=== PATIENT | female | born 1990 | race Caucasian/White ===

== ENCOUNTER → 2016-08-26 | Outpatient (CLI) | payer BC ==
[~2016-08-26] MED LIST: AMOX500C3 PO; LEVO150T9 PO; LEVO200T6 PO; RANI150T3 PO; TRAZ50TA35 PO; VENL1CAP92 PO
--- NOTE | 2016-08-26 15:39 | DIAGNOSTIC IMAGING REPORT ---
TWO VIEW CHEST CLINICAL HISTORY: Dyspnea. FINDINGS: PA and lateral chest radiographs are compared to study dated 07/15/2015. The examination is degraded by large body habitus. The cardiomediastinal silhouette is unremarkable. The lungs and pleural spaces are clear. There is no pneumothorax. The bony thorax appears intact. IMPRESSION: No active disease in the chest. Electronically signed by: Sebastian Bailey M.D. 08/26/2016 3:37 PM Dictated Date/Time: 08/26/2016 3:37 PM
== END | disposition home or self-care (01) ==
LOC: C.RAD 15:13
PROVIDERS: ATTEND Family Medicine
DX: J45.909 Unspecified asthma, uncomplicated (principal)

== ENCOUNTER 2016-11-22 17:02 | Emergency (ER) | payer BC ==
[~2016-11-22] VITALS: Ht 167.6 cm; Wt 151.7 kg
[~2016-11-22 17:02] MED LIST changes: -LEVO200T6 PO; -RANI150T3 PO; -TRAZ50TA35 PO
[2016-11-22 17:08] VITALS: TEMP 36.8; Ht 167.6 cm; Wt 151.7 kg
[2016-11-22] MEDS ORDERED: RANI150T3 PO (17:35)
[2016-11-22] MEDS ORDERED: LEVO200T6 PO (17:35)
[2016-11-22] MEDS ORDERED: TRAZ50TA35 PO (17:35)
[2016-11-22 17:53] VITALS: BP 134/83; PULSE 89; O2SAT 98
--- NOTE | 2016-11-22 19:37 | EMERGENCY ROOM VISIT NOTE ---
History First contact with patient: 17:09 Chief Complaint: RABIES VACCINE Stated Complaint: BITE History of Present Illness The patient is a 26 year old female who presents to the Emergency Room with complaints of chipmunk bite to her right thumb. The patient states this occurred about 24 hours ago. She saw her outdoor cat carrying something in its mouth, and she removed it from the cats mouth. She saw that it was a small animal, but did not realize it was still alive, and the animal bit her. The patient did kill the animal and went to her primary care physician's office today. The PCP was concerned about rabies and the patient was referred to the ER for evaluation. The patient is reportedly up-to-date on her tetanus. She does not have other injuries or persistent bleeding. Review of Systems More than 10 systems were reviewed and otherwise negative with the exception of history of present illness. Past Medical/Surgical History Medical Problems: (1) Hypothyroid (2) Panic attacks Family History No pertinent family history Social History Smoking Status: Former Smoker Housing Status: lives with family Current/Historical Medications Scheduled Levothyroxine Sodium (Levothyroxine Sodium), 200 MCG PO DAILY Ranitidine Hcl (Zantac), 150 MG PO DAILY Trazodone Hcl (Trazodone), 50 MG PO HS Allergies Coded Allergies: Chocolate (Verified Allergy, Intermediate, nausea, 11/22/16) Bismuth Subsalicylate (Verified Adverse Reaction, Intermediate, nausea, ) From Pepto Bismol Physical Exam Vital Signs Date Time Temp Pulse Resp B/P Pulse Ox O2 Delivery O2 Flow Rate FiO2 11/22/16 17:53 89 20 134/83 98 Room Air 11/22/16 17:08 36.8 96 20 141/93 98 Room Air Pain Rating (0-10): 0 Physical Exam VITALS: Vitals are noted on the nurse's note and reviewed by myself. Vital signs stable. GENERAL: Well-developed, well-nourished, white female, who is in no acute distress and resting comfortably. Patient is cooperative with the examination. HEAD: Normocephalic atraumatic. HEART: Regular rate and rhythm without murmurs gallops or rubs. LUNGS: Clear to auscultation bilaterally without wheezes, rales or rhonchi. No retractions or accessory muscle use. SKIN: The skin was with a small healing wound to the palmar distal right thumb consistent with animal bite. There is no active bleeding. The patient with full sensation and range of motion. Medical Decision & Procedures ED Course Physical exam and history were performed. Nursing notes and EMR were reviewed. Patient appears to have suffered an animal bite to her right thumb. She was able to kill and preserve the animal. I examined the wound appears clean and well healing. I discussed the case with the [facility] rabies hotline. Recommendation was to defer rabies immunization at this time, as the patient was felt to be at essentially a 0 risk for rabies exposure. The Department of Health will review the case in the morning, and will contact the patient and family directly for further recommendations regarding testing of the animal if needed. The family was pleased with this and voiced understanding. They will await further recommendations from the Department of Health and were otherwise invited back to the ER with any new, worsening, or concerning symptoms. The chart was completed utilizing [employer] Voice Recognition Software. Grammatical errors, random word insertions, pronoun errors, and incomplete sentences are an occasional consequence of this system due to software limitations, ambient noise, and hardware issues. Any formal questions or concerns about the content, text, or information contained within the body of this dictation should be directly addressed to the provider for clarification. . Medical Decision Differential diagnosis includes, but is not limited to: Laceration, abrasion, bite, and others Impression Primary Impression: Animal bite of finger Departure Information Dispostion Home / Self-Care Condition GOOD Forms HOME CARE DOCUMENTATION FORM, IMPORTANT VISIT INFORMATION Patient Instructions My [facility] Additional Instructions You were seen and evaluated today on an emergency basis only. This is not a substitute for, or an effort to provide, complete comprehensive medical care. It is not possible to recognize and treat all injuries or illnesses in a single emergency department visit. For this reason it is recommended that you followup at the recommendation of the [facility] ([phone]). They are aware of your case and should contact you tomorrow. You are welcome to return to the emergency department anytime with new, worsening, or concerning symptoms.
== END 2016-11-22 17:54 | disposition home or self-care (01) ==
LOC: C.EDB 17:03 → C.EDD 17:54
DX: S61.051A Open bite of right thumb without damage to nail, initial encounter (principal); W55.81XA Bitten by other mammals, initial encounter; E03.9 Hypothyroidism, unspecified; F41.0 Panic disorder [episodic paroxysmal anxiety]; Z87.891 Personal history of nicotine dependence